=== PATIENT | male | born 1995 | race Hispanic/Latino ===

== ENCOUNTER 2017-02-04 11:54 | Emergency (ER) | payer OTHER ==
[2017-02-04] MEDS ORDERED: Morphine 4 MG/ML Carpuject ONE (12:45)
[2017-02-04] MEDS ORDERED: Ondansetron HCl/PF 4 MG/2 ML Vial ONE (12:45)
[2017-02-04 12:49] LABS: #Basophils 0.1 thou/uL (0.0-0.2); #Eosinphils 0.2 thou/uL (0.0-0.7); #Lymphocytes 2.2 thou/uL (1.20-3.40); #Monocytes 0.4 thou/uL (0.11-0.59); #Neutrophils 3.4 thou/uL (1.40-6.50); %Eosinophils 2.7 % (0.0-10.0); %Lymphocytes 35.5 % (21.0-51.0); %Monocytes 5.7 % (0.0-10.0); Hematocrit 49.3 % (42.0-52.0); Mean Platelet Volume 10.2 fL (7.4-10.4); Red Blood Cell (RBC) Count 5.84 mill/uL (4.70-6.10); White Blood Cell (WBC) Count 6.1 thou/uL (4.8-10.8)
[2017-02-04 13:07] LABS: ALT (SGPT) 55 U/L (8-55); AST (SGOT) 40 U/L (5-34); Alkaline Phosphatase 83 U/L (40-150); Anion Gap 15 mmol/L (10-20); BUN (Urea Nitrogen) 14 mg/dL (8.9-20.6); Bilirubin, Total 0.9 mg/dL (0.2-1.2); Calc. Creatinine Clearance 0 mL/min (70-130); Calcium 9.5 mg/dL (7.8-10.44); Carbon Dioxide 24 mmol/L (22-29); Chloride 106 mmol/L (98-107); Estimated GFR-MDRD Greater than 90; Globulin 3.1 g/dL (2.4-3.5); Protein, Total 7.4 g/dL (6.0-8.3)
[2017-02-04 13:08] LABS: Prothrombin Time 14.1 SEC (12.0-14.7)
[2017-02-04 13:09] LABS: Troponin I 0.012 ng/mL (< 0.028)
--- NOTE | 2017-02-04 13:10 | RAD ---
PORTABLE CHEST ONE VIEW: Date: 02-04-17 Time: 12:40 p.m. History: Chest pain. FINDINGS: The heart size is normal. The lungs are expanded and clear. The bony thorax is normal. IMPRESSION: Normal exam. POS: [id number]
[2017-02-04] MEDS ORDERED: Ketorolac Tromethamine 30 MG/ML VIAL ONE (14:11)
== END 2017-02-04 15:32 | disposition home or self-care (01) ==
LOC: SCSER 11:54
DX: R07.89 Other chest pain (principal)
CPT/HCPCS: 36415; 71010; 80053; 82553; 84484; 85025; 85379; 85610; 93005; 96361; 96374; 96375; J1885; J2270; J2405